=== PATIENT | female | born 1990 | race Caucasian/White ===

== ENCOUNTER 2024-02-08 10:22 | Emergency (ER) | payer OTHER ==
[~2024-02-08] VITALS: Ht 160 cm; Wt 69.1 kg
[2024-02-08] MEDS: methylPREDNISolone 125MG 2ML VIAL IV ONE (11:25)
[2024-02-08] MEDS: FAMOTIDINE 20MG/2ML VIAL IVP ONE (11:25)
[2024-02-08] MEDS: diphenhydrAMINE 50MG/ML VIAL IV ONE (11:25)
[2024-02-08 11:39] LABS: BASO % 0.4 % (0.0-1.0); EOS # 0.1 10^3/uL (0.0-0.5); EOS % 1.4 % (0.0-3.0); HEMATOCRIT 41.3 % (36.0-47.0); HEMOGLOBIN 13.4 g/dl (12.0-15.5); LYMPH # 2.3 10^3/uL (1.5-5.0); LYMPH % 33.3 % (24.0-44.0); MEAN CORPUSCULAR HEMOGLOBIN 29.7 pg (27.0-33.0); MEAN CORPUSCULAR HGB CONC 32.4 g/dl (32.0-36.5); MEAN CORPUSCULAR VOLUME 91.6 fl (80.0-96.0); MONO # 0.4 10^3/uL (0.0-0.8); MONO % 5.8 % (2.0-8.0); NEUTROPHILS # 4.1 10^3/uL (1.5-8.5); PLATELET COUNT, AUTOMATED 314 10^3/uL (150-450); RED BLOOD COUNT 4.51 10^6/uL (4.00-5.40); WHITE BLOOD COUNT 6.9 10^3/uL (4.0-10.0)
[2024-02-08 12:04] LABS: BLOOD UREA NITROGEN 12 MG/DL (9-23); CALCIUM LEVEL 9.2 MG/DL (8.5-10.1); CARBON DIOXIDE LEVEL 30 MMOL/L (20-31); CHLORIDE LEVEL 106 MMOL/L (98-107); CREATININE FOR GFR 0.79 MG/DL (0.55-1.30); GLOMERULAR FILTRATION RATE > 60.0 (>60); GLUCOSE, FASTING 88 MG/DL (60-100); POTASSIUM SERUM 4.1 MMOL/L (3.5-5.1); SODIUM LEVEL 141 MMOL/L (136-145)
[2024-02-08 12:29] LABS: HCG, SERUM QUALITATIVE NEGATIVE (NEGATIVE)
[2024-02-08] MEDS ORDERED: PRED10TA2 PO (12:39)
[2024-02-08] MEDS ORDERED: FAMO20TA PO (12:39)
[2024-02-08 12:46] VITALS: BP 116/75; TEMP 98; O2SAT 100
== END 2024-02-08 12:51 | disposition home or self-care (01) ==
LOC: M ED 10:22
DX: T78.40XA Allergy, unspecified, initial encounter (principal)
CPT/HCPCS: 80048; 84703; 85025; 94760; 96374; 96375; 99284; J1200; J2919; S0028

== ENCOUNTER 2025-06-17 14:12 | Emergency (ER) | payer OTHER ==
[~2025-06-17 14:12] MED LIST: FAMO20TA PO; PRED10TA2 PO
[2025-06-17 14:54] LABS: BASO # 0.0 10^3/uL (0.0-0.2); BASO % 0.2 % (0.0-1.0); EOS # 0.0 10^3/uL (0.0-0.5); EOS % 0.2 % (0.0-3.0); LYMPH # 2.4 10^3/uL (1.5-5.0); LYMPH % 12.0 % (24.0-44.0); MONO # 0.6 10^3/uL (0.0-0.8); MONO % 3.2 % (2.0-8.0); NEUTROPHILS # 16.6 10^3/uL (1.5-8.5); NEUTROPHILS % 84.0 % (36.0-66.0); PLATELET COUNT, AUTOMATED 371 10^3/uL (150-450)
[2025-06-17 15:23] LABS: ALT/SGPT 15 U/L (7.0-40); AST/SGOT 15 U/L (<34); CALCIUM LEVEL 8.9 MG/DL (8.5-10.1); CARBON DIOXIDE LEVEL 26 MMOL/L (20-31); CHLORIDE LEVEL 101 MMOL/L (98-107); CK-MB VALUE MASS < 1.0 NG/ML (<3.6); CREATININE FOR GFR 0.85 MG/DL (0.55-1.30); GLOMERULAR FILTRATION RATE > 90.0 (>60); POTASSIUM SERUM 3.9 MMOL/L (3.5-5.1); SODIUM LEVEL 140 MMOL/L (136-145)
[2025-06-17 15:26] LABS: CPK CREATINE PHOSPHOKINASE 113 U/L (34-145); HCG, SERUM QUALITATIVE NEGATIVE (NEGATIVE)
[2025-06-17 16:24] LABS: CK-MB VALUE MASS < 1.0 NG/ML (<3.6)
[2025-06-17 16:25] LABS: CPK CREATINE PHOSPHOKINASE 97 U/L (34-145)
[2025-06-17] MEDS: NS (Normal Saline) 0.9% 1,000 ML IV ONE (18:31)
[2025-06-17] MEDS: PANTOPRAZOLE 40MG VIAL IV ONE (18:31)
[2025-06-17] MEDS: MORPHINE 4 MG/ML 1 ML VIAL IV ONE (18:31)
[2025-06-17] MEDS: ONDANSETRON 4MG/2ML VIAL IV ONE (18:32)
[2025-06-17] MEDS: GASTROGRAFIN SOLUTION 30ML PO SCH (18:48)
[2025-06-17 18:57] LABS: KETONE, URINE AUTO RFX 1+ mg/dL (NEGATIVE); LEUKOCYTE ESTERASE UR AUTO RFX NEGATIVE (NEGATIVE); MUCUS, URINE RFX SMALL (NEGATIVE); NITRITE, URINE AUTO RFX NEGATIVE (NEGATIVE); RBC, URINE AUTO RFX 0 /HPF (0-3); SQUAM EPITHELIAL CELL UR AURFX 9 /HPF (0-6); WBC, URINE AUTO RFX 1 /HPF (0-3)
[2025-06-17] MEDS ORDERED: LORY1TAB2 PO (18:59)
[2025-06-17] MEDS ORDERED: HOME MED LIST COMPLETE! XX SCH (19:00)
[2025-06-17] MEDS ORDERED: ISOVUE-370 76% 100 ML VIAL As Ordered ONE (19:46)
[2025-06-17] MEDS ORDERED: METR-265 PO (23:08)
[2025-06-17] MEDS ORDERED: CIPR-249 PO (23:08)
[2025-06-17] MEDS ORDERED: PERC5TAB12 PO (23:10)
[2025-06-17] MEDS: CIPROFLOXACIN 500 MG TABLET PO ONE (23:23)
[2025-06-17 23:25] VITALS: BP 126/62; TEMP 98.3; O2SAT 99
== END 2025-06-17 23:32 | disposition home or self-care (01) ==
LOC: M ED 14:12
DX: K52.9 Noninfective gastroenteritis and colitis, unspecified (principal); R18.8 Other ascites; R93.2 Abnormal findings on diagnostic imaging of liver and biliary tract; M25.559 Pain in unspecified hip; M25.569 Pain in unspecified knee; M54.9 Dorsalgia, unspecified; J30.89 Other allergic rhinitis; Z79.3 Long term (current) use of hormonal contraceptives; Z91.010 Allergy to peanuts
CPT/HCPCS: 71045; 71275; 74177; 80048; 80076; 81001; 82550; 82553; 83605; 83690; 84443; 84484; 84703; 85025; 87040; 87486; 87581; 87633; 87798; 93005; 93041; 94760; 96361; 96374; 96375; 99285; J2405; J2470; Q9963; Q9967

== ENCOUNTER → 2025-06-24 | Outpatient (CLI) | payer OTHER ==
[~2025-06-24] MED LIST changes: +CIPR-249 PO; +ISOVUE-300 61% 100 ML VIAL As Ordered ONE; +LIDOCAINE 1% MDV 20 ML VIAL As Ordered ONE; +LORY1TAB2 PO; +METR-265 PO; +PERC5TAB12 PO; +TRIAMCINOLONE ACETONIDE SUSP 40MG/ML 1ML VIAL As Ordered ONE
== END ==
LOC: M RAD 13:11
PROVIDERS: ATTEND Physician Assistant Surgical
DX: S73.121A Ischiocapsular ligament sprain of right hip, initial encounter (principal); X58.XXXA Exposure to other specified factors, initial encounter; Y92.9 Unspecified place or not applicable
CPT/HCPCS: 20610; 77002; J3301; Q9967